=== PATIENT | male | born 1975 | race Caucasian/White ===

== ENCOUNTER → 2020-03-26 | Outpatient (CLI) | payer OTHER ==
[2020-02-29 15:00] VITALS: BP 135/78
[~2020-03-26] MED LIST: EMPA1TAB7 PO; FENO145T3 PO; GLYB5TAB3 PO; INSU3INS2 SQ; LISI-338 PO; OMEP20TA8 PO; PIOG45TA62 PO
--- NOTE | 2020-03-26 14:51 | KCIC ---
EXAMINATION: XR CHEST 2V CLINICAL HISTORY: Hx COVID-19, pneumonia. Positive end of January. EXAM DATE/TIME: 03/26/2020 2:34 PM COMPARISON: 02/26/2020 FINDINGS: Lines, Tubes, and Devices: None. Cardiomediastinal Silhouette: Normal heart size. Lungs and Pleura: Improved aeration of the bilateral lungs with mild residual patchy opacities, great er on the right. No pleural effusion or pneumothorax. Bones and Soft Tissues: Degenerative changes of the thoracic spine. IMPRESSION: Decreased but persistent mild patchy airspace disease in the right greater than left lungs, concernin g for residual pneumonia. Electronically signed by: Glenn Lange DO (03/26/2020 2:49 PM) BEAN
== END ==
LOC: KCIC 14:30
PROVIDERS: ATTEND Family Medicine
DX: J18.9 Pneumonia, unspecified organism (principal); Z86.19 Personal history of other infectious and parasitic diseases
CPT/HCPCS: 71046